=== PATIENT | female | born 1990 | race American Indian/Alaskan Native ===

== ENCOUNTER 2017-05-09 05:00 | Emergency (ER) | payer MEDICAID ==
[2017-05-09 05:27] VITALS: BP 129/80
--- NOTE | 2017-05-09 08:08 | Emergency Department Report ---
[facility] Chief Complaint: Eye Problems Stated Complaint: EYE PAIN Time Seen by Provider: 05/09/17 07:27 Duration: 1 Day Side: Right Severity: moderate Symptoms: Yes Eye Redness, Yes Eye Pain, Yes Blurred Vision, Yes Contact Lens Use, No Eye Itching, No Mucous Drainage, No Purulent Drainage, No Preceding URI , No H/O Allergic Rhinitis, No Trauma, No Fever, No Headache Other History: Patient is a 27-year-old female states she started experiencing pain and irritation yesterday morning when she woke up. Patient states she has put some non-prescriptions color contact lenses using for the past 2 weeks. Patient states she takes them out frequently. Patient states there was no trauma or injury to the no foreign bodies in the eye. Patient states up-to- date vaccinations. Patient's dates that she has used allergy clear eyes that did not work ED Review of Systems ROS: Stated complaint: EYE PAIN Other details as noted in HPI Constitutional: denies: chills, fever Eyes: eye pain. denies: eye discharge, vision change ENT: denies: ear pain, throat pain Respiratory: denies: cough, shortness of breath, wheezing Cardiovascular: denies: chest pain, palpitations Endocrine: no symptoms reported Gastrointestinal: denies: abdominal pain, nausea, diarrhea Genitourinary: denies: urgency, dysuria, discharge Musculoskeletal: denies: back pain, joint swelling, arthralgia Skin: denies: rash, lesions Neurological: denies: headache, weakness, paresthesias Psychiatric: denies: anxiety, depression Hematological/Lymphatic: denies: easy bleeding, easy bruising ED Past Medical Hx - Past Medical History Previous Medical History?: No - Surgical History Past Surgical History?: No - Social History Smoking Status: Current Every Day Smoker - Medications Home Medications: Home Medications Medication Instructions Recorded Confirmed Last Taken Type Ketorolac Tromethamin 0.4%(Nf) 1 drop OP BID #5 ml 05/09/17 Unknown Rx [Acular Ls 0.4% Ophth Clare] Ofloxacin 0.3% [Ocuflox] 1 - 2 drops OP TID #5 ml 05/09/17 Unknown Rx [facility] Exam - Exam General: Vital signs noted. No distress. Alert and acting appropriately. Eye Exam: Right Injection, Right Photophobia, Both EOMI, Neither Chemosis, Neither Abnormal Pupil, Neither Eye Foreign Body, Neither Lid Foreign Body, Neither Mucous Discharge, Neither Purulent Discharge, Neither Fluorescein Uptake , Neither Corneal Edema HEENT: No Nasal Congestion, No Pharyngeal Erythema Remainder of HEENT: Normal Lungs: Yes Clear Lung Sounds, Yes Good Air Exchange, No Wheezes, No Stridor, No Cough, No Nasal Flaring, No Retractions, No Use of Accessory Muscles Exam: Right conjunctiva is erythematous, sclera is slightly erythematous. Right upper eyelid mildly swollen. No foreign objects seen,. Visual acuity test. BILAT: 20/25. R- 20/50. L-20/30 ED Course Vital Signs 05/09/17 05:21 Temperature 98.2 F Pulse Rate 104 H Respiratory 18 Rate Blood Pressure 129/80 O2 Sat by Pulse 99 Oximetry ED Medical Decision Making - Radiology Data Radiology results: report reviewed - Medical Decision Making 27-year-old female presents with right eye conjunctivitis ED course: I vision is intact. No loss of vision I discussed the patient to take medication as prescribed. Vital signs are normal patient is in no acute distress Discussed the patient will follow up with primary care physician I discussed the patient if symptoms worsen to return to ED. Critical care attestation.: If time is entered above; I have spent that time in minutes in the direct care of this critically ill patient, excluding procedure time. ED Disposition Clinical Impression: Conjunctivitis of right eye Qualifiers: Conjunctivitis type: acute Acute conjunctivitis type: bacterial Qualified Code( s): H10.31 - Unspecified acute conjunctivitis, right eye Disposition: DC-01 TO HOME OR SELFCARE Is pt being admited?: No Does the pt Need Aspirin: No Condition: Stable Instructions: Conjunctivitis (ED), Blepharitis (ED) Additional Instructions: Follow-up with your primary care physician. Take your antibiotics eyedrops as previous described as discussed. If Symptoms worsen or new symptoms arise such as blindness, loss of vision his return to ED TONE Prescriptions: Ketorolac Tromethamin 0.4%(Nf) [Acular Ls 0.4% Ophth Clare] 1 drop OP BID #5 ml Ofloxacin 0.3% [Ocuflox] 1 - 2 drops OP TID #5 ml Referrals: PRIMARY CARE, [Primary Care Provider] - 3-5 Days [facility] [Outside] - 3-5 Days [facility] [Outside] - 3-5 Days [facility] [Outside] - 3-5 Days Forms: AMA Form, Work/School Release Form(ED) Time of Disposition: 08:10
== END 2017-05-09 08:21 | disposition home or self-care (01) ==
LOC: ED 05:00
DX: H10.31 Unspecified acute conjunctivitis, right eye (principal); F17.200 Nicotine dependence, unspecified, uncomplicated
CPT/HCPCS: 93005; 93010; 99283

== ENCOUNTER 2019-10-10 15:42 | Emergency (ER) | payer MEDICAID, OTHER ==
[2019-10-10 15:54] VITALS: BP 135/89
[2019-10-10] MEDS ORDERED: SODIUM CHLORIDE 0.9% 1000 ML 1,000 ML IV ONE (16:43)
[2019-10-10] MEDS ORDERED: ONDANSETRON 4 MG/2 ML INJ IV ONE (16:43)
[2019-10-10] MEDS ORDERED: MORPHINE 4 MG/1 ML INJ IV ONE (16:43)
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
[2019-10-10 17:12] LABS: Basophils % (Auto) 0.4 % (0.0-1.8); Eosinophils % (Auto) 0.1 % (0.0-4.3); Hemoglobin 12.5 gm/dl (10.1-14.3); Lymphocytes # (Auto) 1.3 K/mm3 (1.2-5.4); Lymphocytes % (Auto) 10.7 % (13.4-35.0); Mean Corpuscular HGB Conc 35 % (30-34); Mean Corpuscular Volume 96 fl (79-97); Monocytes # (Auto) 1.3 K/mm3 (0.0-0.8); Monocytes % (Auto) 10.9 % (0.0-7.3); Platelet Count 218 K/mm3 (140-440); Red Blood Count 3.77 M/mm3 (3.65-5.03); Red Cell Distribution Width 13.7 % (13.2-15.2)
[2019-10-10 17:13] LABS: HCG Qualitative,Urine Negative (Negative)
[2019-10-10 17:17] LABS: Bacteria,Urine 1+ /HPF (Negative); Bilirubin,Urine NEG (Negative); Blood,Urine MOD (Negative); Color,Urine Yellow (Yellow); Mucus,Urine FEW /HPF
[2019-10-10] MEDS ORDERED: cefTRIAXone/NS 1 GM/50 ML 1 GM/50 ML BAG IV ONE (17:18)
[2019-10-10 17:35] LABS: Alanine Aminotransferase 26 units/L (7-56); Albumin 4.1 g/dL (3.9-5); BUN/Creatinine Ratio 8; Blood Urea Nitrogen 9 mg/dL (7-17); Calcium 9.6 mg/dL (8.4-10.2); Hemolysis Index 0
[2019-10-10] MEDS ORDERED: POTASSIUM CHLORIDE ER 20 MEQ TAB PO ONE (17:43)
== END 2019-10-10 18:19 | disposition home or self-care (01) ==
LOC: ED 15:42
DX: N39.0 Urinary tract infection, site not specified (principal); F17.200 Nicotine dependence, unspecified, uncomplicated; F12.10 Cannabis abuse, uncomplicated; Z79.899 Other long term (current) drug therapy; Z88.0 Allergy status to penicillin
CPT/HCPCS: 36415; 80053; 81001; 81025; 85025; 87086; 96365; 96375; 99283; J0696; J2270; J2405; J7030

== ENCOUNTER 2021-04-10 12:42 | Emergency (ER) | payer SELFPAY ==
[2021-04-10 13:43] VITALS: BP 148/95
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
== END 2021-04-10 15:59 | disposition home or self-care (01) ==
LOC: ED 12:42
DX: S61.216A Laceration without foreign body of right little finger without damage to nail, initial encounter (principal); F17.200 Nicotine dependence, unspecified, uncomplicated; F12.90 Cannabis use, unspecified, uncomplicated; Z88.0 Allergy status to penicillin; Z79.899 Other long term (current) drug therapy; Z98.890 Other specified postprocedural states
CPT/HCPCS: 99281

== ENCOUNTER 2021-04-21 13:46 | Emergency (ER) | payer SELFPAY ==
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
[2021-04-21 15:41] VITALS: BP 126/78
== END 2021-04-21 17:00 | disposition home or self-care (01) ==
LOC: ED 13:46
DX: Z48.02 Encounter for removal of sutures (principal); F12.10 Cannabis abuse, uncomplicated; F17.200 Nicotine dependence, unspecified, uncomplicated